=== PATIENT | male | born 1970 | race Caucasian/White ===

== ENCOUNTER 2021-01-15 17:13 | Outpatient (CLI) | payer OTHER, SELFPAY ==
[2021-01-15 18:19] LABS: Hepatitis A Antibody IgM Non-Reactive (Nonreactive); Hepatitis B Core IgM Non-Reactive (Nonreactive); Hepatitis B Surface Antigen Non-Reactive (Nonreactive); Hepatitis C Virus Antibody Non-Reactive (Nonreactive)
== END 2021-01-15 17:14 | disposition home or self-care (01) ==
PROVIDERS: Visit Provider Internal Medicine Medical Oncology
DX: C15.9 Malignant neoplasm of esophagus, unspecified (principal)
CPT/HCPCS: 36415; 80074

== ENCOUNTER 2021-07-07 11:59 | Oncology outpatient (recurring) (ONCR) | payer OTHER, SELFPAY | END 2021-07-07 23:59 | disposition home or self-care (01) | PROVIDERS: Visit Provider Internal Medicine Hematology & Oncology | DX: C16.0 Malignant neoplasm of cardia (principal); J45.909 Unspecified asthma, uncomplicated; F10.21 Alcohol dependence, in remission; S82.891A Other fracture of right lower leg, initial encounter for closed fracture; Z90.89 Acquired absence of other organs; Z93.4 Other artificial openings of gastrointestinal tract status ==

== ENCOUNTER 2021-08-04 14:30 | Oncology outpatient (recurring) (ONCR) | payer BC, SELFPAY ==
[2021-07-28 08:18] VITALS: BMI 25.9
[2021-07-28 08:33] LABS: Basophils % 1.5 %; Eosinophils # 0.3 10^3/uL (0.0-0.8); Eosinophils % 10.5 %; Hematocrit 34.4 % (42.0-52.0); Hemoglobin 10.8 g/dL (11.7-16.6); Lymphocytes # 0.8 10^3/uL (0.8-4.8); Lymphocytes % 30.5 %; Mean Corpuscular HGB Conc 31.4 g/dL (30.0-36.0); Mean Corpuscular Volume 82.9 fl (80-94); Mean Platelet Volume 9.6 fL (7.4-10.4); Monocytes # 0.5 10^3/uL (0.2-0.9); Monocytes % 16.9 %; Neutrophils # 1.08 10^3/uL (1.8-7.7); Neutrophils % 40.6 %; Nucleated Red Blood Cells % 0 %; Platelet Count 153 10^3/cmm (130-400); Red Blood Count 4.15 10^6/uL (4.1-5.3); Red Cell Distribution Width 14.4 % (12.1-15.1); White Blood Count 2.7 10^3/uL (4.0-10.0)
[2021-07-28 08:52] LABS: Alanine Aminotransferase 13 U/L (0-41); Albumin Level 4.2 g/dL (3.5-5.2); Alkaline Phosphatase 110 IU/L (40-130); Anion Gap 12.9 (5-19); Aspartate Amino Transferase 22 U/L (0-40); Blood Urea Nitrogen 8 mg/dL (6-20); Calcium 9.6 mg/dL (8.5-10.5); Carbon Dioxide 27 mmol/L (22-29); Chloride 104 mmol/L (98-107); Glomerular Filtration Rate 143.2 mL/min (90-130); Glucose 93 mg/dL (65-115); Osmolality Calculated 288 mOsm/kg (285-295); Potassium 3.9 mmol/L (3.5-5.1); Sodium 140 mmol/L (136-145); Total Bilirubin 0.4 mg/dL (0.15-1.2); Total Protein 7.2 g/dL (6.6-8.7)
[2021-07-28] MEDS: dextrose 5% 250 ML 100 ML IV (10:59)
[2021-07-28] MEDS: palonosetron 0.25 mg/5 mL SDV IVP (11:00)
[2021-07-28] MEDS: DEXTROSE 5% IV ×2 (11:51→11:52)
[2021-07-28] MEDS: LEUCOVORIN IV (11:51)
[2021-07-28] MEDS: OXALIPLATIN IV (11:52)
[2021-07-28 15:31] VITALS: BP 124/68; PULSE 79; RESP 16; TEMP 36.9; O2SAT 98
[2021-07-30 13:13] VITALS: BP 111/71; PULSE 74; RESP 18; TEMP 37.1; O2SAT 98
[2021-07-30] MEDS: pegfilgrastim 6 mg/0.6 mL Kit (onpro) SUBCUT (13:23)
[2021-08-04 15:02] LABS: Basophils # 0.1 10^3/uL (0.0-0.1); Basophils % 1.3 %; Eosinophils # 0.3 10^3/uL (0.0-0.8); Eosinophils % 3.5 %; Hematocrit 35.4 % (42.0-52.0); Hemoglobin 11.2 g/dL (11.7-16.6); Lymphocytes # 1.6 10^3/uL (0.8-4.8); Lymphocytes % 17.4 %; Mean Corpuscular HGB Conc 31.6 g/dL (30.0-36.0); Mean Corpuscular Hemoglobin 26.2 pg (28.0-34.0); Mean Corpuscular Volume 82.9 fl (80-94); Mean Platelet Volume 9.6 fL (7.4-10.4); Monocytes # 1.8 10^3/uL (0.2-0.9); Monocytes % 19.2 %; Neutrophils # 5.35 10^3/uL (1.8-7.7); Neutrophils % 58.1 %; Nucleated Red Blood Cells % 0 %; Platelet Count 149 10^3/cmm (130-400); Red Blood Count 4.27 10^6/uL (4.1-5.3); Red Cell Distribution Width 14.7 % (12.1-15.1); White Blood Count 9.2 10^3/uL (4.0-10.0)
[2021-08-04 15:19] LABS: Alanine Aminotransferase 14 U/L (0-41); Albumin Level 4.5 g/dL (3.5-5.2); Alkaline Phosphatase 147 IU/L (40-130); Anion Gap 13.7 (5-19); Aspartate Amino Transferase 18 U/L (0-40); Blood Urea Nitrogen 11 mg/dL (6-20); Calcium 9.1 mg/dL (8.5-10.5); Carbon Dioxide 28 mmol/L (22-29); Chloride 100 mmol/L (98-107); Globulin 3.2 g/dL (1.3-4.6); Glomerular Filtration Rate 119.9 mL/min (90-130); Glucose 88 mg/dL (65-115); Osmolality Calculated 285 mOsm/kg (285-295); Potassium 3.7 mmol/L (3.5-5.1); Sodium 138 mmol/L (136-145); Total Bilirubin 0.5 mg/dL (0.15-1.2); Total Protein 7.7 g/dL (6.6-8.7)
[2021-08-04 15:23] LABS: Slide Review Slide Review Perform
== END 2021-08-06 23:59 | disposition home or self-care (01) ==
PROVIDERS: Nurse Practitioner Family; Visit Provider Internal Medicine Hematology & Oncology
DX: C16.0 Malignant neoplasm of cardia (principal)
CPT/HCPCS: 36415; 80053; 85025; 96367; 96368; 96372; 96375; 96377; 96413; 96415; 96416; 96523; 99214; J0640; J1100; J2469; J2506; J9190; J9263

== ENCOUNTER 2021-08-27 11:00 | Oncology outpatient (recurring) (ONCR) | payer OTHER, SELFPAY ==
[2021-08-11 08:57] VITALS: BMI 25.9
[2021-08-11 09:07] LABS: Basophils # 0.1 10^3/uL (0.0-0.1); Basophils % 1.1 %; Eosinophils # 0.2 10^3/uL (0.0-0.8); Eosinophils % 4.6 %; Hematocrit 34.3 % (42.0-52.0); Hemoglobin 10.8 g/dL (11.7-16.6); Lymphocytes # 0.7 10^3/uL (0.8-4.8); Lymphocytes % 15.6 %; Mean Corpuscular HGB Conc 31.5 g/dL (30.0-36.0); Mean Corpuscular Hemoglobin 26.3 pg (28.0-34.0); Mean Corpuscular Volume 83.5 fl (80-94); Mean Platelet Volume 9.9 fL (7.4-10.4); Monocytes # 0.6 10^3/uL (0.2-0.9); Monocytes % 13.3 %; Neutrophils # 3.03 10^3/uL (1.8-7.7); Neutrophils % 63.9 %; Nucleated Red Blood Cells % 0 %; Platelet Count 112 10^3/cmm (130-400); Red Blood Count 4.11 10^6/uL (4.1-5.3); Red Cell Distribution Width 15.4 % (12.1-15.1); White Blood Count 4.7 10^3/uL (4.0-10.0)
[2021-08-11 09:29] LABS: Alanine Aminotransferase 17 U/L (0-41); Alkaline Phosphatase 118 IU/L (40-130); Anion Gap 13.9 (5-19); Aspartate Amino Transferase 20 U/L (0-40); Blood Urea Nitrogen 9 mg/dL (6-20); Calcium 8.8 mg/dL (8.5-10.5); Carbon Dioxide 26 mmol/L (22-29); Chloride 104 mmol/L (98-107); Globulin 2.8 g/dL (1.3-4.6); Glomerular Filtration Rate 119.9 mL/min (90-130); Glucose 77 mg/dL (65-115); Osmolality Calculated 287 mOsm/kg (285-295); Potassium 3.9 mmol/L (3.5-5.1); Sodium 140 mmol/L (136-145); Total Bilirubin 0.5 mg/dL (0.15-1.2); Total Protein 6.8 g/dL (6.6-8.7)
[2021-08-11] MEDS: palonosetron 0.25 mg/5 mL SDV IVP (11:22)
[2021-08-11] MEDS: dextrose 5% 250 ML 75 ML IV (11:25)
[2021-08-11 11:29] VITALS: BP 112/70; PULSE 77; RESP 18; TEMP 36.5; O2SAT 96
[2021-08-11] MEDS: DEXTROSE 5% IV ×2 (12:00→12:01)
[2021-08-11] MEDS: LEUCOVORIN IV (12:00)
[2021-08-11] MEDS: OXALIPLATIN IV (12:01)
[2021-08-11 12:56] LABS: Ferritin 71 ng/mL (30-400); Iron 36 ug/dL (59-158); Percent Saturation 11.4 % (20-50); Total Iron Binding Capacity 314 mcg/dl; Unsaturated Iron Binding 278 ug/dL (112-347)
[2021-08-11 13:38] LABS: Vitamin B12 > 2000 pg/mL (232-1245)
[2021-08-13 13:45] VITALS: BP 111/64; PULSE 73; RESP 18; TEMP 36.4; O2SAT 98
[2021-08-25 08:44] LABS: Basophils % 0.8 %; Eosinophils # 0.1 10^3/uL (0.0-0.8); Eosinophils % 2.4 %; Hematocrit 37.7 % (42.0-52.0); Hemoglobin 11.4 g/dL (11.7-16.6); Lymphocytes # 0.7 10^3/uL (0.8-4.8); Lymphocytes % 15.1 %; Mean Corpuscular HGB Conc 30.2 g/dL (30.0-36.0); Mean Corpuscular Hemoglobin 26.1 pg (28.0-34.0); Mean Corpuscular Volume 86.5 fl (80-94); Mean Platelet Volume 10.2 fL (7.4-10.4); Monocytes # 0.5 10^3/uL (0.2-0.9); Monocytes % 9.6 %; Neutrophils # 3.46 10^3/uL (1.8-7.7); Neutrophils % 70.5 %; Nucleated Red Blood Cells % 0 %; Platelet Count 77 10^3/cmm (130-400); Red Blood Count 4.36 10^6/uL (4.1-5.3); Red Cell Distribution Width 16.5 % (12.1-15.1); White Blood Count 4.9 10^3/uL (4.0-10.0)
[2021-08-25 08:45] VITALS: BMI 25.3
[2021-08-25 09:02] LABS: Alanine Aminotransferase 23 U/L (0-41); Albumin Level 4.1 g/dL (3.5-5.2); Alkaline Phosphatase 134 IU/L (40-130); Anion Gap 13.4 (5-19); Aspartate Amino Transferase 27 U/L (0-40); Blood Urea Nitrogen 8 mg/dL (6-20); Calcium 9.1 mg/dL (8.5-10.5); Carbon Dioxide 26 mmol/L (22-29); Chloride 104 mmol/L (98-107); Globulin 2.3 g/dL (1.3-4.6); Glomerular Filtration Rate 102.7 mL/min (90-130); Glucose 181 mg/dL (65-115); Osmolality Calculated 293 mOsm/kg (285-295); Potassium 3.4 mmol/L (3.5-5.1); Sodium 140 mmol/L (136-145); Total Bilirubin 0.4 mg/dL (0.15-1.2); Total Protein 6.4 g/dL (6.6-8.7)
[2021-08-25] MEDS: dextrose 5% 250 ML 100 ML IV (10:00)
[2021-08-25] MEDS: palonosetron 0.25 mg/5 mL SDV IVP (10:00)
[2021-08-25] MEDS: LEUCOVORIN IV (10:28)
[2021-08-25] MEDS: DEXTROSE 5% IV (10:28)
[2021-08-25] MEDS: oxaliplatin 100 MG, oxaliplatin 44 MG in dextrose 5% 250 ML 69.7 MG IV (10:29)
[2021-08-25] MEDS: fluorouraciL 4,300 MG, elastomeric pump 1 PUMP in sodium chloride 0.9% (100 ml) 6 ML IV (13:52)
[2021-08-25 14:01] VITALS: BP 122/83; PULSE 94; RESP 16; TEMP 36.3; O2SAT 95
== END 2021-09-06 23:59 | disposition home or self-care (01) ==
PROVIDERS: Nurse Practitioner Family; Visit Provider Internal Medicine Hematology & Oncology
DX: Z45.2 Encounter for adjustment and management of vascular access device (principal)
CPT/HCPCS: 80053; 82607; 82728; 83540; 83550; 85025; 96367; 96368; 96372; 96375; 96413; 96415; 96416; 96523; J0640; J1100; J2469; J9190; J9263; Q5108

== ENCOUNTER 2021-09-25 11:30 | Oncology outpatient (recurring) (ONCR) | payer OTHER, SELFPAY ==
[2021-09-08 08:37] LABS: Basophils # 0.1 10^3/uL (0.0-0.1); Basophils % 1.4 %; Eosinophils # 0.1 10^3/uL (0.0-0.8); Eosinophils % 2.9 %; Hematocrit 36.6 % (42.0-52.0); Hemoglobin 11.2 g/dL (11.7-16.6); Lymphocytes # 0.7 10^3/uL (0.8-4.8); Lymphocytes % 14.7 %; Mean Corpuscular HGB Conc 30.6 g/dL (30.0-36.0); Mean Corpuscular Hemoglobin 25.9 pg (28.0-34.0); Mean Corpuscular Volume 84.5 fl (80-94); Monocytes # 0.8 10^3/uL (0.2-0.9); Monocytes % 16.9 %; Neutrophils # 2.78 10^3/uL (1.8-7.7); Neutrophils % 62.7 %; Nucleated Red Blood Cells % 0 %; Platelet Count 107 10^3/cmm (130-400); Red Blood Count 4.33 10^6/uL (4.1-5.3); White Blood Count 4.4 10^3/uL (4.0-10.0)
[2021-09-08 09:10] LABS: Alanine Aminotransferase 21 U/L (0-41); Alkaline Phosphatase 145 IU/L (40-130); Anion Gap 12.9 (5-19); Aspartate Amino Transferase 30 U/L (0-40); Blood Urea Nitrogen 8 mg/dL (6-20); Calcium 9.4 mg/dL (8.5-10.5); Carbon Dioxide 28 mmol/L (22-29); Chloride 103 mmol/L (98-107); Globulin 2.8 g/dL (1.3-4.6); Glomerular Filtration Rate 143.2 mL/min (90-130); Glucose 90 mg/dL (65-115); Osmolality Calculated 288 mOsm/kg (285-295); Potassium 3.9 mmol/L (3.5-5.1); Sodium 140 mmol/L (136-145); Total Bilirubin 0.4 mg/dL (0.15-1.2); Total Protein 6.8 g/dL (6.6-8.7)
[2021-09-08] MEDS: dextrose 5% 250 ML 100 ML IV (09:54)
[2021-09-08] MEDS: palonosetron 0.25 mg/5 mL SDV IVP (09:57)
[2021-09-08] MEDS: DEXTROSE 5% IV (10:55)
[2021-09-08] MEDS: LEUCOVORIN IV (10:55)
[2021-09-08] MEDS: oxaliplatin 100 MG, oxaliplatin 44 MG in dextrose 5% 250 ML 69.7 MG IV (10:55)
[2021-09-08] MEDS: fluorouraciL 4,300 MG, elastomeric pump 1 PUMP in sodium chloride 0.9% (100 ml) 6 ML IV (14:25)
[2021-09-08 14:28] VITALS: BP 93/56; PULSE 73; RESP 16; TEMP 36.6; O2SAT 98
[2021-09-23 08:24] LABS: Basophils # 0.1 10^3/uL (0.0-0.1); Basophils % 1.2 %; Eosinophils # 0.1 10^3/uL (0.0-0.8); Eosinophils % 2.6 %; Hematocrit 35.6 % (42.0-52.0); Lymphocytes # 0.6 10^3/uL (0.8-4.8); Mean Corpuscular HGB Conc 30.9 g/dL (30.0-36.0); Mean Corpuscular Hemoglobin 26.1 pg (28.0-34.0); Mean Corpuscular Volume 84.4 fl (80-94); Mean Platelet Volume 9.7 fL (7.4-10.4); Monocytes # 0.7 10^3/uL (0.2-0.9); Monocytes % 15.7 %; Neutrophils # 2.76 10^3/uL (1.8-7.7); Neutrophils % 64.8 %; Nucleated Red Blood Cells % 0 %; Platelet Count 95 10^3/cmm (130-400); Red Blood Count 4.22 10^6/uL (4.1-5.3); Red Cell Distribution Width 18.1 % (12.1-15.1); White Blood Count 4.3 10^3/uL (4.0-10.0)
[2021-09-23 08:53] LABS: Alanine Aminotransferase 18 U/L (0-41); Albumin Level 4.1 g/dL (3.5-5.2); Alkaline Phosphatase 164 U/L (40-130); Anion Gap 11.4 (5-19); Aspartate Amino Transferase 27 U/L (0-40); Blood Urea Nitrogen 9 mg/dL (6-20); Calcium 9.5 mg/dL (8.5-10.5); Carbon Dioxide 28 mmol/L (22-29); Chloride 105 mmol/L (98-107); Globulin 2.6 g/dL (1.3-4.6); Glomerular Filtration Rate 119.9 mL/min (90-130); Glucose 84 mg/dL (65-115); Osmolality Calculated 288 mOsm/kg (285-295); Potassium 4.4 mmol/L (3.5-5.1); Sodium 140 mmol/L (136-145); Total Bilirubin 0.4 mg/dL (0.15-1.2); Total Protein 6.7 g/dL (6.6-8.7)
[2021-09-23] MEDS: sodium chloride 0.9% 500 ML 999 ML IV (09:50)
[2021-09-23] MEDS: palonosetron 0.25 mg/5 mL SDV IVP (09:52)
[2021-09-23] MEDS: dextrose 5% 250 ML 75 ML IV (10:42)
[2021-09-23] MEDS: leucovorin 870 MG in dextrose 5% 250 ML 84.25 MG IV (10:43)
[2021-09-23] MEDS: oxaliplatin 100 MG, oxaliplatin 42 MG in dextrose 5% 250 ML 69.6 MG IV (10:43)
[2021-09-23] MEDS: fluorouraciL 4,200 MG, elastomeric pump 1 PUMP in sodium chloride 0.9% (100 ml) 8 ML IV (14:22)
[2021-09-23 14:29] VITALS: BP 107/59; PULSE 70; TEMP 36.9; O2SAT 96
== END 2021-10-07 23:59 | disposition home or self-care (01) ==
PROVIDERS: Nurse Practitioner Family; PCP Family Medicine; Visit Provider Internal Medicine Hematology & Oncology
DX: Z51.11 Encounter for antineoplastic chemotherapy (principal); C16.0 Malignant neoplasm of cardia; D70.9 Neutropenia, unspecified; Z45.2 Encounter for adjustment and management of vascular access device; Z79.899 Other long term (current) drug therapy
CPT/HCPCS: 80053; 85025; 96367; 96368; 96372; 96375; 96413; 96415; 96416; 96523; J0640; J1100; J2469; J7040; J9190; J9263; Q5108

== ENCOUNTER 2021-10-30 10:00 | Oncology outpatient (recurring) (ONCR) | payer OTHER, SELFPAY ==
[2021-10-14 10:01] LABS: Basophils # 0.1 10^3/uL (0.0-0.1); Basophils % 1.6 %; Eosinophils # 0.1 10^3/uL (0.0-0.8); Eosinophils % 1.6 %; Hematocrit 33.3 % (42.0-52.0); Hemoglobin 10.3 g/dL (11.7-16.6); Lymphocytes # 0.6 10^3/uL (0.8-4.8); Mean Corpuscular HGB Conc 30.9 g/dL (30.0-36.0); Mean Corpuscular Hemoglobin 26.5 pg (28.0-34.0); Mean Corpuscular Volume 85.8 fl (80-94); Mean Platelet Volume 9.9 fL (7.4-10.4); Monocytes # 0.6 10^3/uL (0.2-0.9); Monocytes % 20.6 %; Neutrophils # 1.77 10^3/uL (1.8-7.7); Neutrophils % 57.9 %; Nucleated Red Blood Cells % 0 %; Platelet Count 117 10^3/cmm (130-400); Red Blood Count 3.88 10^6/uL (4.1-5.3); White Blood Count 3.1 10^3/uL (4.0-10.0)
[2021-10-14 10:16] LABS: Alanine Aminotransferase 17 U/L (0-41); Albumin Level 3.5 g/dL (3.5-5.2); Alkaline Phosphatase 138 U/L (40-130); Anion Gap 10.9 (5-19); Aspartate Amino Transferase 25 U/L (0-40); Blood Urea Nitrogen 12 mg/dL (6-20); Calcium 9.2 mg/dL (8.5-10.5); Carbon Dioxide 27 mmol/L (22-29); Chloride 106 mmol/L (98-107); Globulin 2.6 g/dL (1.3-4.6); Glomerular Filtration Rate 119.9 mL/min (90-130); Glucose 107 mg/dL (65-115); Osmolality Calculated 290 mOsm/kg (285-295); Potassium 3.9 mmol/L (3.5-5.1); Sodium 140 mmol/L (136-145); Total Bilirubin 0.5 mg/dL (0.15-1.2); Total Protein 6.1 g/dL (6.6-8.7)
[2021-10-14] MEDS: dextrose 5% 250 ML 100 ML IV (12:07)
[2021-10-14] MEDS: palonosetron 0.25 mg/5 mL SDV IVP (12:08)
[2021-10-14] MEDS: DEXTROSE 5% IV (12:37)
[2021-10-14] MEDS: oxaliplatin 100 MG, oxaliplatin 44 MG in dextrose 5% 250 ML 69.7 MG IV (12:37)
[2021-10-14] MEDS: LEUCOVORIN IV (12:37)
[2021-10-14] MEDS: fluorouraciL 4,300 MG, elastomeric pump 1 PUMP in sodium chloride 0.9% (100 ml) 6 ML IV (16:08)
[2021-10-14 16:20] VITALS: BP 94/56; PULSE 80; TEMP 37.1; O2SAT 95
[2021-10-16] MEDS: palonosetron 0.25 mg/5 mL SDV IVP (10:38)
[2021-10-16] MEDS: sodium chloride 0.9% 500 ML 999 ML IV (10:38)
[2021-10-16 11:34] VITALS: BP 111/67; PULSE 58; TEMP 36.4; O2SAT 98
[2021-10-28 08:54] LABS: Basophils # 0.1 10^3/uL (0.0-0.1); Basophils % 1.1 %; Eosinophils # 0.1 10^3/uL (0.0-0.8); Eosinophils % 2.7 %; Hematocrit 33.9 % (42.0-52.0); Hemoglobin 10.4 g/dL (11.7-16.6); Lymphocytes # 0.6 10^3/uL (0.8-4.8); Lymphocytes % 13.5 %; Mean Corpuscular HGB Conc 30.7 g/dL (30.0-36.0); Mean Corpuscular Hemoglobin 26.5 pg (28.0-34.0); Mean Corpuscular Volume 86.3 fl (80-94); Mean Platelet Volume 9.8 fL (7.4-10.4); Monocytes # 0.7 10^3/uL (0.2-0.9); Monocytes % 15.3 %; Neutrophils # 2.96 10^3/uL (1.8-7.7); Neutrophils % 66.5 %; Nucleated Red Blood Cells % 0 %; Platelet Count 115 10^3/cmm (130-400); Red Blood Count 3.93 10^6/uL (4.1-5.3); Red Cell Distribution Width 19.2 % (12.1-15.1); White Blood Count 4.5 10^3/uL (4.0-10.0)
[2021-10-28 08:58] LABS: Alanine Aminotransferase 16 U/L (0-41); Albumin Level 3.9 g/dL (3.5-5.2); Alkaline Phosphatase 162 U/L (40-130); Anion Gap 13.1 (5-19); Aspartate Amino Transferase 23 U/L (0-40); Blood Urea Nitrogen 10 mg/dL (6-20); Calcium 9.3 mg/dL (8.5-10.5); Carbon Dioxide 26 mmol/L (22-29); Chloride 107 mmol/L (98-107); Globulin 2.5 g/dL (1.3-4.6); Glomerular Filtration Rate 119.9 mL/min (90-130); Glucose 89 mg/dL (65-115); Magnesium 1.9 mg/dL (1.7-2.3); Osmolality Calculated 293 mOsm/kg (285-295); Potassium 4.1 mmol/L (3.5-5.1); Sodium 142 mmol/L (136-145); Total Bilirubin 0.6 mg/dL (0.15-1.2); Total Protein 6.4 g/dL (6.6-8.7)
[2021-10-28] MEDS: dextrose 5% 250 ML 100 ML IV (10:22)
[2021-10-28] MEDS: palonosetron 0.25 mg/5 mL SDV IVP (10:24)
[2021-10-28] MEDS: oxaliplatin 100 MG, oxaliplatin 44 MG in dextrose 5% 250 ML 69.7 MG IV (11:14)
[2021-10-28] MEDS: LEUCOVORIN IV (11:15)
[2021-10-28] MEDS: DEXTROSE 5% IV (11:15)
[2021-10-28] MEDS: ondansetron 2 mg/ML SDV 2 mL 8 MG IVP (13:33)
[2021-10-28] MEDS: fluorouraciL 4,300 MG, elastomeric pump 1 PUMP in sodium chloride 0.9% (100 ml) 6 ML IV (14:55)
== END 2021-11-06 23:59 | disposition home or self-care (01) ==
PROVIDERS: Nurse Practitioner; Nurse Practitioner Family; PCP Family Medicine; Visit Provider Internal Medicine Hematology & Oncology
DX: Z79.899 Other long term (current) drug therapy; C16.0 Malignant neoplasm of cardia; D70.9 Neutropenia, unspecified; Z45.2 Encounter for adjustment and management of vascular access device
CPT/HCPCS: 80053; 83735; 85025; 96365; 96367; 96368; 96372; 96375; 96413; 96415; 96416; 96523; J0640; J1100; J2405; J2469; J7040; J9190; J9263; Q5108

== ENCOUNTER 2021-11-20 09:00 | Oncology outpatient (recurring) (ONCR) | payer OTHER, SELFPAY ==
[2021-11-18 08:35] LABS: Basophils # 0.1 10^3/uL (0.0-0.1); Basophils % 2.1 %; Eosinophils # 0.1 10^3/uL (0.0-0.8); Eosinophils % 1.5 %; Hematocrit 33.5 % (42.0-52.0); Hemoglobin 10.5 g/dL (11.7-16.6); Lymphocytes # 0.4 10^3/uL (0.8-4.8); Lymphocytes % 12.5 %; Mean Corpuscular HGB Conc 31.3 g/dL (30.0-36.0); Mean Corpuscular Hemoglobin 27.2 pg (28.0-34.0); Mean Corpuscular Volume 86.8 fl (80-94); Mean Platelet Volume 9.9 fL (7.4-10.4); Monocytes # 0.6 10^3/uL (0.2-0.9); Neutrophils # 2.18 10^3/uL (1.8-7.7); Neutrophils % 66.3 %; Nucleated Red Blood Cells % 0 %; Platelet Count 115 10^3/cmm (130-400); Red Blood Count 3.86 10^6/uL (4.1-5.3); Red Cell Distribution Width 20.4 % (12.1-15.1); White Blood Count 3.3 10^3/uL (4.0-10.0)
[2021-11-18 08:58] LABS: Alanine Aminotransferase 14 U/L (0-41); Albumin Level 3.9 g/dL (3.5-5.2); Alkaline Phosphatase 147 U/L (40-130); Anion Gap 15.9 (5-19); Aspartate Amino Transferase 23 U/L (0-40); Blood Urea Nitrogen 8 mg/dL (6-20); Calcium 9.2 mg/dL (8.5-10.5); Carbon Dioxide 25 mmol/L (22-29); Chloride 104 mmol/L (98-107); Globulin 2.6 g/dL (1.3-4.6); Glomerular Filtration Rate 143.2 mL/min (90-130); Glucose 119 mg/dL (65-115); Osmolality Calculated 291 mOsm/kg (285-295); Potassium 3.9 mmol/L (3.5-5.1); Sodium 141 mmol/L (136-145); Total Bilirubin 0.6 mg/dL (0.15-1.2); Total Protein 6.5 g/dL (6.6-8.7)
[2021-11-18] MEDS: dextrose 5% 250 ML 100 ML IV (09:49)
[2021-11-18] MEDS: palonosetron 0.25 mg/5 mL SDV IVP (09:51)
[2021-11-18] MEDS: oxaliplatin 100 MG, oxaliplatin 44 MG in dextrose 5% 250 ML 69.7 MG IV (10:42)
[2021-11-18] MEDS: DEXTROSE 5% IV (10:42)
[2021-11-18] MEDS: LEUCOVORIN IV (10:42)
[2021-11-18] MEDS: fluorouraciL 4,300 MG, elastomeric pump 1 PUMP in sodium chloride 0.9% (100 ml) 6 ML IV (14:19)
== END 2021-12-07 23:59 | disposition home or self-care (01) ==
PROVIDERS: PCP Family Medicine; Visit Provider Internal Medicine Hematology & Oncology
DX: Z79.899 Other long term (current) drug therapy (principal); Z45.2 Encounter for adjustment and management of vascular access device
CPT/HCPCS: 80053; 85025; 96367; 96368; 96372; 96375; 96413; 96415; 96416; 96523; J0640; J1100; J2469; J9190; J9263; Q5108

== ENCOUNTER 2021-12-29 07:48 | Oncology outpatient (recurring) (ONCR) | payer OTHER, SELFPAY ==
[2021-12-29 08:29] LABS: Basophils % 1.4 %; Eosinophils # 0.1 10^3/uL (0.0-0.8); Eosinophils % 5.9 %; Hematocrit 31.7 % (42.0-52.0); Hemoglobin 9.6 g/dL (11.7-16.6); Lymphocytes # 0.4 10^3/uL (0.8-4.8); Lymphocytes % 19.5 %; Mean Corpuscular HGB Conc 30.3 g/dL (30.0-36.0); Mean Corpuscular Hemoglobin 26.6 pg (28.0-34.0); Mean Corpuscular Volume 87.8 fl (80-94); Mean Platelet Volume 9.3 fL (7.4-10.4); Monocytes # 0.3 10^3/uL (0.2-0.9); Monocytes % 13.6 %; Neutrophils % 59.1 %; Nucleated Red Blood Cells % 0 %; Platelet Count 115 10^3/cmm (130-400); Red Blood Count 3.61 10^6/uL (4.1-5.3); Red Cell Distribution Width 18.7 % (12.1-15.1); White Blood Count 2.2 10^3/uL (4.0-10.0)
[2021-12-29 08:51] LABS: Alanine Aminotransferase 14 U/L (0-41); Albumin Level 3.3 g/dL (3.5-5.2); Alkaline Phosphatase 146 U/L (40-130); Anion Gap 10.9 (5-19); Aspartate Amino Transferase 18 U/L (0-40); Blood Urea Nitrogen 12 mg/dL (6-20); Calcium 8.9 mg/dL (8.5-10.5); Carbon Dioxide 26 mmol/L (22-29); Chloride 108 mmol/L (98-107); Globulin 2.9 g/dL (1.3-4.6); Glomerular Filtration Rate 143.2 mL/min (90-130); Glucose 91 mg/dL (65-115); Osmolality Calculated 291 mOsm/kg (285-295); Potassium 3.9 mmol/L (3.5-5.1); Sodium 141 mmol/L (136-145); Total Bilirubin 0.6 mg/dL (0.15-1.2); Total Protein 6.2 g/dL (6.6-8.7)
[2021-12-29 10:00] LABS: Reticulocyte % 0.9 % (0.5-2.0)
[2021-12-29 10:32] LABS: Ferritin 25 ng/mL (30-400); Iron 35 ug/dL (59-158); Percent Saturation 9.7 % (20-50); Total Iron Binding Capacity 358 mcg/dl; Unsaturated Iron Binding 323 ug/dL (112-347); Vitamin B12 1047 pg/mL (232-1245)
== END 2022-01-06 23:59 | disposition home or self-care (01) ==
PROVIDERS: PCP Family Medicine; Visit Provider Internal Medicine Hematology & Oncology
DX: C16.0 Malignant neoplasm of cardia (principal); C77.8 Secondary and unspecified malignant neoplasm of lymph nodes of multiple regions; K52.1 Toxic gastroenteritis and colitis; T45.1X5A Adverse effect of antineoplastic and immunosuppressive drugs, initial encounter; D61.818 Other pancytopenia; D64.9 Anemia, unspecified; Z79.899 Other long term (current) drug therapy; Z92.3 Personal history of irradiation; Z92.21 Personal history of antineoplastic chemotherapy
CPT/HCPCS: 36591; 80053; 82607; 82728; 83540; 83550; 85025; 85045

== ENCOUNTER 2022-02-05 08:09 | Oncology outpatient (recurring) (ONCR) | payer BC, SELFPAY ==
[2022-02-05 08:34] LABS: Basophils % 1.9 %; Eosinophils # 0.2 10^3/uL (0.0-0.8); Hematocrit 36.6 % (42.0-52.0); Hemoglobin 11.1 g/dL (11.7-16.6); Lymphocytes # 0.6 10^3/uL (0.8-4.8); Mean Corpuscular HGB Conc 30.3 g/dL (30.0-36.0); Mean Corpuscular Hemoglobin 26.7 pg (28.0-34.0); Monocytes # 0.4 10^3/uL (0.2-0.9); Monocytes % 16.3 %; Neutrophils # 1.03 10^3/uL (1.8-7.7); Neutrophils % 47.8 %; Nucleated Red Blood Cells % 0 %; Platelet Count 118 10^3/cmm (130-400); Red Blood Count 4.16 10^6/uL (4.1-5.3); Red Cell Distribution Width 17.7 % (12.1-15.1); White Blood Count 2.2 10^3/uL (4.0-10.0)
== END 2022-02-06 23:59 | disposition home or self-care (01) ==
LOC: ONCMED 08:09
PROVIDERS: PCP Family Medicine; Visit Provider Internal Medicine Hematology & Oncology
DX: C16.0 Malignant neoplasm of cardia (principal); C77.8 Secondary and unspecified malignant neoplasm of lymph nodes of multiple regions; K52.1 Toxic gastroenteritis and colitis; T45.1X5A Adverse effect of antineoplastic and immunosuppressive drugs, initial encounter; D61.818 Other pancytopenia; D64.9 Anemia, unspecified; Z79.899 Other long term (current) drug therapy; Z92.3 Personal history of irradiation; Z92.21 Personal history of antineoplastic chemotherapy; Z45.2 Encounter for adjustment and management of vascular access device; Z51.11 Encounter for antineoplastic chemotherapy; Z79.52 Long term (current) use of systemic steroids; D70.9 Neutropenia, unspecified
CPT/HCPCS: 36591; 85025

== ENCOUNTER 2022-04-08 16:04 | Oncology outpatient (recurring) (ONCR) | payer OTHER, SELFPAY ==
[2022-04-08 16:39] LABS: Basophils % 1.5 %; Eosinophils # 0.1 10^3/uL (0.0-0.8); Eosinophils % 4.9 %; Hematocrit 37.2 % (42.0-52.0); Hemoglobin 11.9 g/dL (11.7-16.6); Lymphocytes # 0.9 10^3/uL (0.8-4.8); Lymphocytes % 32.1 %; Mean Corpuscular Hemoglobin 28.1 pg (28.0-34.0); Mean Corpuscular Volume 87.7 fl (80-94); Mean Platelet Volume 9.3 fL (7.4-10.4); Monocytes # 0.4 10^3/uL (0.2-0.9); Monocytes % 14.9 %; Neutrophils # 1.25 10^3/uL (1.8-7.7); Neutrophils % 46.6 %; Nucleated Red Blood Cells % 0 %; Platelet Count 110 10^3/cmm (130-400); Red Blood Count 4.24 10^6/uL (4.1-5.3); Red Cell Distribution Width 15.6 % (12.1-15.1); White Blood Count 2.7 10^3/uL (4.0-10.0)
== END 2022-05-07 23:59 | disposition home or self-care (01) ==
PROVIDERS: PCP Family Medicine; Visit Provider Internal Medicine Hematology & Oncology
DX: C16.0 Malignant neoplasm of cardia (principal); C77.8 Secondary and unspecified malignant neoplasm of lymph nodes of multiple regions; Z79.899 Other long term (current) drug therapy
CPT/HCPCS: 36591; 85025

== ENCOUNTER 2022-07-08 14:50 | Oncology outpatient (recurring) (ONCR) | payer OTHER, SELFPAY ==
[2022-07-08 15:36] VITALS: BP 113/68; PULSE 61; RESP 18; TEMP 37; O2SAT 97
[2022-07-08 15:57] LABS: Basophils # 0.1 10^3/uL (0.0-0.1); Basophils % 1.3 %; Eosinophils # 0.1 10^3/uL (0.0-0.8); Eosinophils % 3.2 %; Hematocrit 38.2 % (42.0-52.0); Hemoglobin 12.4 g/dL (11.7-16.6); Lymphocytes % 26.7 %; Mean Corpuscular HGB Conc 32.5 g/dL (30.0-36.0); Mean Corpuscular Hemoglobin 29.7 pg (28.0-34.0); Mean Corpuscular Volume 91.6 fl (80-94); Mean Platelet Volume 9.4 fL (7.4-10.4); Monocytes # 0.5 10^3/uL (0.2-0.9); Monocytes % 12.5 %; Nucleated Red Blood Cells % 0 %; Platelet Count 111 10^3/cmm (130-400); Red Blood Count 4.17 10^6/uL (4.1-5.3); White Blood Count 3.8 10^3/uL (4.0-10.0)
[2022-07-08 16:40] LABS: Alanine Aminotransferase 14 U/L (0-41); Alkaline Phosphatase 93 U/L (40-130); Aspartate Amino Transferase 20 U/L (0-40); Blood Urea Nitrogen 13 mg/dL (6-20); Calcium 8.6 mg/dL (8.5-10.5); Carbon Dioxide 27 mmol/L (22-29); Chloride 103 mmol/L (98-107); Globulin 2.5 g/dL (1.3-4.6); Glomerular Filtration Rate 119.4 mL/min (90-130); Glucose 98 mg/dL (65-115); Osmolality Calculated 286 mOsm/kg (285-295); Sodium 138 mmol/L (136-145); Total Bilirubin 0.7 mg/dL (0.15-1.2); Total Protein 6.5 g/dL (6.6-8.7)
[2022-07-12 17:14] LABS: Copper Level 115 mcg/dL (70-175)
[2022-07-13 15:39] LABS: Zinc Level, Serum or Plasma 61 mcg/dL (60-130)
== END 2022-08-06 23:59 | disposition home or self-care (01) ==
PROVIDERS: PCP Family Medicine; Visit Provider Internal Medicine Hematology & Oncology
DX: Z08 Encounter for follow-up examination after completed treatment for malignant neoplasm; Z85.01 Personal history of malignant neoplasm of esophagus; R53.83 Other fatigue; R63.4 Abnormal weight loss; Z68.24 Body mass index [BMI] 24.0-24.9, adult; R19.7 Diarrhea, unspecified; Z92.3 Personal history of irradiation; Z92.21 Personal history of antineoplastic chemotherapy; D70.9 Neutropenia, unspecified; D69.6 Thrombocytopenia, unspecified
CPT/HCPCS: 36591; 80053; 82525; 84630; 85025; 99214; J1642

== ENCOUNTER 2022-08-20 07:47 | Oncology outpatient (recurring) (ONCR) | payer OTHER, SELFPAY ==
[2022-08-20 07:50] VITALS: BP 116/73; PULSE 62; RESP 18; TEMP 36.2; O2SAT 96
== END 2022-09-06 23:59 | disposition home or self-care (01) ==
LOC: ONCMED 07:47
PROVIDERS: PCP Family Medicine; Visit Provider Internal Medicine Hematology & Oncology
DX: Z45.2 Encounter for adjustment and management of vascular access device (principal)
CPT/HCPCS: 96523; J1642

== ENCOUNTER 2022-10-21 07:18 | Outpatient (CLI) | payer OTHER, BC, SELFPAY ==
--- NOTE | 2022-10-21 08:30 | CT_ITS ---
WS: [id number] CT CHEST, ABDOMEN AND PELVIS WITH CONTRAST HISTORY: Esophageal cancer. TECHNIQUE: Contiguous 5 mm axial imaging performed through the chest, abdomen and pelvis with IV cont rast, oral contrast has been provided. Coronal and sagittal reformats chest. Coronal and sagittal ref ormats through the abdomen and pelvis. All CT scans at [facility] use at least one of these d ose optimization techniques: automated exposure control; mA and/or kV adjustment per patient size (in cludes targeted exams where dose is matched to clinical indication); or iterative reconstruction. CONTRAST: Omnipaque 350; 100 mL IV. DLP: 796.38 mGy.cm COMPARISON: PET/CT 04/14/2021 (report is unavailable). Chest CT: No pulmonary mass or nodule. No pneumonia. No mediastinal or hilar adenopathy. Postsurgical changes of esophageal pull-through are noted. No focal mass or asymmetric thickening at the surgical anastomotic site. There is a Port-A-Cath present via the RIGHT jugular vein. Normal size heart. Abdomen CT: Normal liver and spleen. Normal gallbladder. Majority of the oral contrast is in the dist al small bowel. Pancreas is atrophied. Very mild thickening of the LEFT adrenal gland. Normal RIGHT a drenal gland. Normal aorta. Normal gallbladder and kidneys. No GI tract obstruction. No appendicitis. No ascites or adenopathy. Pelvic CT: Mildly distended urinary bladder. There is diffuse wall thickening. Mild prostate heteroge neity and enlargement. No destructive bone lesions. IMPRESSION: 1. Patient is status post esophageal pull-through. No suspicious mass at the anastomotic site. 2. No mediastinal lymph nodes or metastatic nodules within the lungs. 3. No ascites or adenopathy in the abdomen or pelvis. Note: There are no prior CTs available for comparison. Also, the report for the PET/CT was not made a vailable for review.
[2022-10-21] MEDS: iohexol 350 mg/mL 500 mL Btl (per mL) IV (09:24)
[2022-10-21] MEDS: barium sulfate 450 mL Oral Susp PO (09:25)
[2022-10-21 09:34] LABS: Basophils % 1.2 %; Eosinophils # 0.1 10^3/uL (0.0-0.8); Hematocrit 42.3 % (37-53); Lymphocytes # 0.8 10^3/uL (0.8-4.8); Lymphocytes % 24.3 %; Mean Corpuscular HGB Conc 32.4 g/dL (30-55); Mean Corpuscular Hemoglobin 29.8 pg (27-33); Mean Platelet Volume 9.4 fL (7.4-10.4); Monocytes # 0.4 10^3/uL (0.2-0.9); Monocytes % 12.9 %; Neutrophils # 2.03 10^3/uL (1.8-7.7); Neutrophils % 59.3 %; Nucleated Red Blood Cells % 0 %; Platelet Count 120 10^3/cmm (157-399); Red Cell Distribution Width 13.7 % (12.1-15.1); White Blood Count 3.42 10^3/uL (3.29-11.43)
[2022-10-21 09:48] LABS: Alanine Aminotransferase 12 U/L (0-41); Albumin Level 4.1 g/dL (3.5-5.2); Alkaline Phosphatase 82 U/L (40-130); Anion Gap 11.3 (5-19); Aspartate Amino Transferase 16 U/L (0-40); Blood Urea Nitrogen 12 mg/dL (6-20); Calcium 8.8 mg/dL (8.5-10.5); Carbon Dioxide 29 mmol/L (22-29); Chloride 100 mmol/L (98-107); Ferritin 42 ng/mL (30-400); Globulin 2.9 g/dL (1.3-4.6); Glomerular Filtration Rate 119.4 mL/min (90-130); Glucose 89 mg/dL (65-115); Iron 70 ug/dL (59-158); Osmolality Calculated 281 mOsm/kg (285-295); Potassium 4.3 mmol/L (3.5-5.1); Sodium 136 mmol/L (136-145); Total Iron Binding Capacity 304 mcg/dl; Unsaturated Iron Binding 234 ug/dL (112-347)
[2022-10-21 10:02] LABS: Vitamin B12 342 pg/mL (232-1245)
== END 2022-10-21 07:19 | disposition home or self-care (01) ==
PROVIDERS: PCP Family Medicine; Visit Provider Internal Medicine Medical Oncology
DX: C16.0 Malignant neoplasm of cardia (principal)
CPT/HCPCS: 71260; 74177; 80053; 82607; 82728; 83540; 83550; 85025; Q9967

== ENCOUNTER 2022-12-13 15:57 | Oncology outpatient (recurring) (ONCR) | payer OTHER, SELFPAY | END 2023-01-06 23:59 | disposition home or self-care (01) | PROVIDERS: PCP Family Medicine; Visit Provider Internal Medicine Hematology & Oncology | DX: C16.0 Malignant neoplasm of cardia (principal); C77.8 Secondary and unspecified malignant neoplasm of lymph nodes of multiple regions; Z79.899 Other long term (current) drug therapy; K52.1 Toxic gastroenteritis and colitis; T45.1X5A Adverse effect of antineoplastic and immunosuppressive drugs, initial encounter; D61.818 Other pancytopenia; D64.9 Anemia, unspecified; Z92.3 Personal history of irradiation; Z92.21 Personal history of antineoplastic chemotherapy; Z45.2 Encounter for adjustment and management of vascular access device; Z51.11 Encounter for antineoplastic chemotherapy; Z79.52 Long term (current) use of systemic steroids; D70.9 Neutropenia, unspecified; Z95.828 Presence of other vascular implants and grafts | CPT/HCPCS: 36591; 96523; J1642 ==

== ENCOUNTER 2023-02-09 16:04 | Oncology outpatient (recurring) (ONCR) | payer OTHER, BC, SELFPAY | END 2023-03-09 23:59 | disposition home or self-care (01) | PROVIDERS: PCP Family Medicine; Visit Provider Internal Medicine Hematology & Oncology | DX: C16.0 Malignant neoplasm of cardia (principal); C77.8 Secondary and unspecified malignant neoplasm of lymph nodes of multiple regions; Z79.899 Other long term (current) drug therapy; K52.1 Toxic gastroenteritis and colitis; T45.1X5A Adverse effect of antineoplastic and immunosuppressive drugs, initial encounter; D61.818 Other pancytopenia; D64.9 Anemia, unspecified; Z92.3 Personal history of irradiation; Z92.21 Personal history of antineoplastic chemotherapy; Z45.2 Encounter for adjustment and management of vascular access device; Z51.11 Encounter for antineoplastic chemotherapy; Z79.52 Long term (current) use of systemic steroids; D70.9 Neutropenia, unspecified; Z95.828 Presence of other vascular implants and grafts | CPT/HCPCS: 96523; J1642 ==

== ENCOUNTER 2023-04-18 14:40 | Oncology outpatient (recurring) (ONCR) | payer BC, SELFPAY ==
[2023-04-18 15:23] LABS: Basophils % 1.1 %; Eosinophils # 0.1 10^3/uL (0.0-0.8); Eosinophils % 1.4 %; Hematocrit 39.5 % (37-53); Lymphocytes # 0.8 10^3/uL (0.8-4.8); Lymphocytes % 23.6 %; Mean Corpuscular HGB Conc 32.2 g/dL (30-55); Mean Corpuscular Hemoglobin 29.7 pg (27-33); Mean Corpuscular Volume 92.5 fl (82-101); Mean Platelet Volume 9.8 fL (7.4-10.4); Monocytes # 0.5 10^3/uL (0.2-0.9); Monocytes % 14.2 %; Neutrophils # 2.09 10^3/uL (1.8-7.7); Neutrophils % 59.4 %; Nucleated Red Blood Cells % 0 %; Platelet Count 127 10^3/cmm (157-399); Red Blood Count 4.27 10^6/uL (3.85-5.65); Red Cell Distribution Width 13.3 % (12.1-15.1); White Blood Count 3.52 10^3/uL (3.29-11.43)
[2023-04-18 15:45] LABS: Alanine Aminotransferase 11 U/L (0-41); Albumin Level 4.1 g/dL (3.5-5.2); Alkaline Phosphatase 92 U/L (40-130); Anion Gap 14.5 (5-19); Aspartate Amino Transferase 17 U/L (0-40); Blood Urea Nitrogen 9 mg/dL (6-20); Calcium 8.7 mg/dL (8.5-10.5); Carbon Dioxide 25 mmol/L (22-29); Chloride 104 mmol/L (98-107); Creatinine Clr Calc Pharmacy 156.6243; Globulin 2.7 g/dL (1.3-4.6); Glomerular Filtration Rate 119.4 mL/min (90-130); Glucose 57 mg/dL (65-115); Osmolality Calculated 286 mOsm/kg (285-295); Potassium 3.5 mmol/L (3.5-5.1); Sodium 140 mmol/L (136-145); Total Bilirubin 0.6 mg/dL (0.15-1.2); Total Protein 6.8 g/dL (6.6-8.7)
== END 2023-05-08 23:59 | disposition home or self-care (01) ==
PROVIDERS: Internal Medicine Medical Oncology; PCP Family Medicine; Visit Provider Internal Medicine Medical Oncology
DX: C16.0 Malignant neoplasm of cardia (principal)
CPT/HCPCS: 36415; 36591; 80053; 85025; J1642

== ENCOUNTER 2023-05-03 07:19 | Outpatient (CLI) | payer BC, SELFPAY ==
[2023-05-03] MEDS: iohexol 350 mg/mL 500 mL Btl (per mL) PO (07:27)
[2023-05-03] MEDS: iohexol 350 mg/mL 500 mL Btl (per mL) IV (08:27)
--- NOTE | 2023-05-03 08:30 | CT_ITS ---
WS: [id number] CT CHEST, ABDOMEN AND PELVIS WITH CONTRAST HISTORY: cancer surveillance, esophageal cancer follow-up. TECHNIQUE: Contiguous 5 mm axial imaging performed through the chest, abdomen and pelvis with IV cont rast, oral contrast has been provided. Coronal and sagittal reformats chest. Coronal and sagittal ref ormats through the abdomen and pelvis. All CT scans at [facility] use at least one of these d ose optimization techniques: automated exposure control; mA and/or kV adjustment per patient size (in cludes targeted exams where dose is matched to clinical indication); or iterative reconstruction. CONTRAST: Omnipaque 350; 100 mL IV. DLP: 804.50 mGy.cm COMPARISON: 10/21/[address]: Status post esophagectomy with gastric pull-through. No recurrent mass identified at the an astomotic suture sites. No pulmonary mass or nodule. No pneumonia. RIGHT Mediport. Small mediastinal and hilar lymph nodes are very similar to the prior exam. Normal size aorta and pulmonary artery. No bone or soft tissue abnormality. Abdomen CT: Interval change in the abdomen. There is a small amount of ascites with mesenteric edema in the mid superior abdomen. There is fluid adjacent to the LEFT lobe of the liver extending adjacent to the antrum of the stomach and also fluid extending into the central mesentery. There is a new leslee tral soft tissue mass which does does not appear to be small bowel. The soft tissue mass measures 3.7 x 2.4 cm in the supraumbilical anterior peritoneal cavity abutting the small bowel. There are severa l adjacent small bowel loops with mild wall thickening. There is also increasing soft tissue in the r egion of the LEFT adrenal gland. RIGHT adrenal gland is negative. No metastatic disease within the liver. Spleen is normal. No pancreatic abnormality. No renal obstruc tion or solid mass. Normal aorta. Poor visualization of the duodenal C-loop. There is increased soft tissue RIGHT lower quadrant in the region of the ascending colon which needs to be further evaluated. Pelvic CT: Pelvic varicosities. Prostate is enlarged and heterogeneous. No adenopathy. IMPRESSION: 1. Patient is status post gastric pull-through with esophagectomy. 2. Interval adverse changes in the upper abdomen. There is new ascites with a central mesenteric mas s and omental thickening/stranding. These changes need to be evaluated for recurrence of esophageal c ancer and/or carcinomatosis. New finding since 10/21/2022. 3. There is also enlargement and heterogeneity of the LEFT adrenal gland suspicious for metastatic s ite. 4. New soft tissue thickening in the ascending colon near the cecum which needs to be further evalua kimo. 5. Recommend follow-up PET/CT imaging for recurrence or new metastatic site. 6. No pulmonary mass and no adenopathy in the chest.
== END 2023-05-03 07:20 | disposition home or self-care (01) ==
LOC: RAD 07:19
PROVIDERS: PCP Family Medicine; Visit Provider Internal Medicine Medical Oncology
DX: C16.0 Malignant neoplasm of cardia (principal); R59.9 Enlarged lymph nodes, unspecified
CPT/HCPCS: 71260; 74177; Q9967

== ENCOUNTER 2023-06-14 07:39 | Outpatient (CLI) | payer BC, SELFPAY ==
--- NOTE | 2023-06-14 08:30 | PETR_ITS ---
PROCEDURE INFORMATION: Exam: PET/CT Skull Base to Mid-thigh Exam date and time: 06/14/2023 8:19 AM Age: 52 years old Clinical indication: Restaging of gastroesophageal junction carcinoma initially diagnosed in 2020; the most recent restaging CT on 05/03/2023 showed concerning finding for metastatic disease in the abdomen including omentum and the left adrenal. Prior surgery; Surgery date: 6+ months; Surgery type: Esophagus, port. LABS AND CLINICAL REPORTS: Glucose: 111 mg/dl Treatment strategy for malignancy (PET staging): Initial Staging (PI) TECHNIQUE: Imaging protocol: Following at least four-hour fasting and following the injection of radiopharmaceutical, low dose CT images were obtained. Then, PET images were obtained. Attenuation corrected images were constructed using the CT scan. Fused images of PET and CT were reviewed. The standardized uptake values (SUV) reported below are maximum values within a region of interest, expressed in gm/ml. Exam includes orbital meatal line to mid-thigh. Radiopharmaceutical: 10.62 mCi F-18 FDG (Fluorodeoxyglucose), IV. Time of imaging post radiopharmaceutical administration: 1 hour Injection site: Left antecubital vein COMPARISON: PT PET Scan 04/14/2021, CT chest abdomen pelvis 05/03/2023 and 10/21/2022 FINDINGS: Tubes, catheters and devices: Port catheter placed via the right internal jugular vein terminates in the superior vena cava. Brain: Visualized brain has normal physiologic uptake. Pharynx: No abnormal uptake. Larynx: No abnormal uptake. Lungs, pleura and trachea: No abnormal uptake. No lung nodules or masses. Stable chronic small calcified plaques in the left posterior costal pleura. Trace amount of left pleural effusion persists since 05/03/2023, a new finding since 10/21/2022. Heart: Normal physiologic uptake. Mediastinal space: No abnormal uptake. Status post esophagectomy with gastric pull-up surgery. Liver: No abnormal uptake. Gallbladder and bile ducts: No abnormal uptake. Pancreas: No abnormal uptake. Spleen: No abnormal uptake. Stable mildly enlarged spleen measuring 13.5 cm Adrenal glands: No abnormal uptake. Abnormal soft tissue mass between the left diaphragmatic jesús and the body of the left adrenal on axial image 151 is not FDG avid measuring 2.2 cm. Kidneys and ureters: Normal physiologic uptake. No hydronephrosis. 3 x 2 mm calcification in the midpole of the left kidney, possible nonobstructing stone. Stomach and bowel: No abnormal uptake. Intraperitoneal and retroperitoneal spaces: No abnormal uptake. Possible trace amount of free intraperitoneal fluid in the left mid abdomen laterally on axial image 183. Areas of nodular haziness in the upper omental fat are not FDG avid with the highest uptake of 2 SUV. Bladder: Normal physiologic uptake. Reproductive: No abnormal uptake. Vasculature: No abnormal uptake. Lymph nodes: There is mildly increased uptake of 3.1 SUV within the right axillary lymph nodes that measure 1 cm in the short axis versus 0.7 cm on 05/03/2023 and 0.5 cm on 10/21/2022. Small upper mediastinal lymph nodes with low-grade uptake of 2.3 SUV currently measure 0.9 cm in the short axis stable since 05/03/2023 increased from 0.5 cm on 10/21/2022. No FDG avid lymphadenopathy in the head, neck, chest, abdomen, pelvis, left axilla and the groins. Bones/joints: No abnormal uptake in the visualized axial and appendicular skeleton. Soft tissues: No abnormal uptake in the visualized head, neck, chest, abdomen, pelvis, and extremities. PET/PET [facility] INITIAL [id number] IMPRESSION: 1. 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 Correlation with pathology of the primary tumor is recommended (mucinous or signet ring adenocarcinoma?). 2. Slightly increased uptake of 3.1 SUV within the right axillary lymph nodes and borderline normal uptake of 2.3 SUV within upper mediastinal lymph nodes measuring up to 1 cm in the short axis increased in size in comparison with 10/21/2022 may represent small volume metastatic disease or benign reactive changes.
== END 2023-06-14 07:40 | disposition home or self-care (01) ==
LOC: RAD 07:40
PROVIDERS: PCP Family Medicine; Visit Provider Internal Medicine Medical Oncology
DX: C16.0 Malignant neoplasm of cardia (principal); Z98.890 Other specified postprocedural states; Z95.9 Presence of cardiac and vascular implant and graft, unspecified; Z90.49 Acquired absence of other specified parts of digestive tract; R16.1 Splenomegaly, not elsewhere classified; D35.00 Benign neoplasm of unspecified adrenal gland; R59.0 Localized enlarged lymph nodes
CPT/HCPCS: 78815; A9552

== ENCOUNTER 2023-06-14 09:05 | Oncology outpatient (recurring) (ONCR) | payer BC, SELFPAY ==
[2023-06-14 09:25] VITALS: BP 145/70; PULSE 73; RESP 16; TEMP 36.3; O2SAT 97
== END 2023-07-08 23:59 | disposition home or self-care (01) ==
LOC: ONCMED 09:06
PROVIDERS: PCP Family Medicine; Visit Provider Internal Medicine Medical Oncology
DX: Z45.2 Encounter for adjustment and management of vascular access device (principal)
CPT/HCPCS: 96523

== ENCOUNTER 2023-09-02 11:00 | Oncology outpatient (recurring) (ONCR) | payer OTHER, SELFPAY ==
[2023-08-17 08:36] LABS: Basophils % 1.1 %; Eosinophils # 0.2 10^3/uL (0.0-0.8); Eosinophils % 4.1 %; Hematocrit 36.3 % (37-53); Lymphocytes # 0.6 10^3/uL (0.8-4.8); Lymphocytes % 14.9 %; Mean Corpuscular HGB Conc 31.7 g/dL (30-55); Mean Corpuscular Hemoglobin 28.6 pg (27-33); Mean Corpuscular Volume 90.3 fl (82-101); Mean Platelet Volume 9.8 fL (7.4-10.4); Monocytes # 0.5 10^3/uL (0.2-0.9); Monocytes % 12.5 %; Neutrophils # 2.46 10^3/uL (1.8-7.7); Neutrophils % 66.9 %; Nucleated Red Blood Cells % 0 %; Platelet Count 96 10^3/cmm (157-399); Red Blood Count 4.02 10^6/uL (3.85-5.65); Red Cell Distribution Width 13.9 % (12.1-15.1); White Blood Count 3.68 10^3/uL (3.29-11.43)
[2023-08-17 08:59] LABS: Alanine Aminotransferase 7 U/L (0-41); Albumin Level 4.1 g/dL (3.5-5.2); Alkaline Phosphatase 101 U/L (40-130); Anion Gap 14.1 (5-19); Aspartate Amino Transferase 19 U/L (0-40); Blood Urea Nitrogen 14 mg/dL (6-20); Carbon Dioxide 28 mmol/L (22-29); Chloride 102 mmol/L (98-107); Glomerular Filtration Rate 118.9 mL/min (90-130); Glucose 98 mg/dL (65-115); Osmolality Calculated 290 mOsm/kg (285-295); Potassium 4.1 mmol/L (3.5-5.1); Sodium 140 mmol/L (136-145); Total Bilirubin 0.8 mg/dL (0.15-1.2); Total Protein 7.1 g/dL (6.6-8.7)
[2023-08-17] MEDS: dextrose 5% 250 ML 75 ML IV (10:08)
[2023-08-17] MEDS: palonosetron 0.25 mg/5 mL SDV IVP (10:14)
[2023-08-17] MEDS: dexamethasone 4 mg/mL INJ 5 mL 12 MG IVP (10:16)
[2023-08-17] MEDS: oxaliplatin 188 MG in dextrose 5% 250 ML 143.8 MG IV (10:53)
[2023-08-17] MEDS: leucovorin 880 MG in dextrose 5% 250 ML 62.5 MG IV (10:53)
[2023-08-17 11:02] VITALS: BP 118/73; PULSE 64; O2SAT 94
[2023-08-17 13:23] VITALS: BP 121/67; PULSE 65; O2SAT 95
[2023-08-17] MEDS: ELASTOMERIC PUMP PUMP IV (13:29)
[2023-08-17] MEDS: SODIUM CHLORIDE IV (13:29)
[2023-08-17] MEDS: FLUOROURACIL IV (13:29)
[2023-08-19 10:37] VITALS: BP 115/69; PULSE 80; TEMP 36.4
[2023-08-31 08:09] LABS: Basophils % 1.7 %; Eosinophils # 0.1 10^3/uL (0.0-0.8); Eosinophils % 3.3 %; Hematocrit 35.4 % (37-53); Lymphocytes # 0.7 10^3/uL (0.8-4.8); Lymphocytes % 27.7 %; Mean Corpuscular HGB Conc 31.9 g/dL (30-55); Mean Corpuscular Hemoglobin 28.4 pg (27-33); Mean Corpuscular Volume 88.9 fl (82-101); Mean Platelet Volume 10.1 fL (7.4-10.4); Monocytes # 0.4 10^3/uL (0.2-0.9); Monocytes % 16.1 %; Neutrophils # 1.23 10^3/uL (1.8-7.7); Neutrophils % 50.8 %; Nucleated Red Blood Cells % 0 %; Platelet Count 99 10^3/cmm (157-399); Red Blood Count 3.98 10^6/uL (3.85-5.65); Red Cell Distribution Width 13.9 % (12.1-15.1); White Blood Count 2.42 10^3/uL (3.29-11.43)
[2023-08-31 08:22] LABS: Alanine Aminotransferase 12 U/L (0-41); Albumin Level 4.2 g/dL (3.5-5.2); Alkaline Phosphatase 88 U/L (40-130); Anion Gap 14.1 (5-19); Aspartate Amino Transferase 25 U/L (0-40); Blood Urea Nitrogen 14 mg/dL (6-20); Carbon Dioxide 25 mmol/L (22-29); Chloride 106 mmol/L (98-107); Creatinine Clr Calc Pharmacy 151.6602; Globulin 2.7 g/dL (1.3-4.6); Glomerular Filtration Rate 118.9 mL/min (90-130); Glucose 110 mg/dL (65-115); Osmolality Calculated 293 mOsm/kg (285-295); Potassium 4.1 mmol/L (3.5-5.1); Sodium 141 mmol/L (136-145); Total Bilirubin 0.8 mg/dL (0.15-1.2); Total Protein 6.9 g/dL (6.6-8.7)
[2023-08-31] MEDS: dextrose 5% 250 ML 75 ML IV (09:33)
[2023-08-31] MEDS: palonosetron 0.25 mg/5 mL SDV IVP (09:35)
[2023-08-31] MEDS: dexamethasone 4 mg/mL INJ 5 mL 12 MG IVP (09:38)
[2023-08-31] MEDS: leucovorin 860 MG in dextrose 5% 250 ML 62.5 MG IV (10:14)
[2023-08-31] MEDS: oxaliplatin 182 MG in dextrose 5% 250 ML 143.2 MG IV (10:15)
[2023-08-31 12:38] VITALS: BP 117/69; PULSE 72; O2SAT 97
[2023-08-31] MEDS: fluorouraciL 5,150 MG, elastomeric pump 1 PUMP in sodium chloride 0.9% (100 ml) 127 ML IV (12:52)
[2023-09-02 10:42] VITALS: BP 127/78; PULSE 58; RESP 16; TEMP 36.4; O2SAT 98
== END 2023-09-07 23:59 | disposition home or self-care (01) ==
PROVIDERS: Nurse Practitioner Family; PCP Family Medicine; Visit Provider Internal Medicine Medical Oncology
DX: Z45.1 Encounter for adjustment and management of infusion pump (principal); Z53.9 Procedure and treatment not carried out, unspecified reason
CPT/HCPCS: 80053; 85025; 96368; 96375; 96413; 96415; 96416; 96523; J0640; J1100; J2469; J7060; J9190; J9263